=== PATIENT | male | born 1960 | race Two or more races ===

== ENCOUNTER 2025-01-30 07:17 | Outpatient (CLI) | payer OTHER | END 2025-01-30 07:30 | disposition home or self-care (01) | LOC: SONOGRAMA 07:17 | PROVIDERS: ATTEND General Practice | DX: G56.03 Carpal tunnel syndrome, bilateral upper limbs (principal); M19.91 Primary osteoarthritis, unspecified site; Z11.3 Encounter for screening for infections with a predominantly sexual mode of transmission; Z13.0 Encounter for screening for diseases of the blood and blood-forming organs and certain disorders involving the immune mechanism; Z13.1 Encounter for screening for diabetes mellitus; Z13.220 Encounter for screening for lipoid disorders; Z13.89 Encounter for screening for other disorder; Z12.5 Encounter for screening for malignant neoplasm of prostate; N40.1 Benign prostatic hyperplasia with lower urinary tract symptoms; N39.0 Urinary tract infection, site not specified; R10.9 Unspecified abdominal pain; M25.50 Pain in unspecified joint ==

== ENCOUNTER 2025-01-30 09:08 | Outpatient (CLI) | payer OTHER ==
[2025-01-30 10:23] LABS: HEMATOCRIT 47.1 % (39.0-48.0); MEAN CELL VOLUME 85.6 fL (80.0-100.00); MEAN CORPUSCULAR HEMOGLOBIN 29.1 pg (27.00-32.0); MEAN CORPUSCULAR HGB CONC 33.9 g/dl (32.0-36.0); PLATELET COUNT 254 K/uL (150-450); RED CELL DISTRIBUTION WIDTH 13.1 % (11.5-14.5)
[2025-01-30 10:39] LABS: ERYTHROCYTE SEDIMENTATION RATE 4 mm/hr
[2025-01-30 10:48] LABS: PH,URINE 5.5 (5.0-8.0); URINE APPEARANCE Clear; URINE BILIRRUBIN Negative (NEGATIVE); URINE BLOOD Trace; URINE COLOR Yellow; URINE GLUCOSE Negative (NEGATIVE); URINE KETONE Negative (NEGATIVE); URINE LEUKOCYTE Negative; URINE NITRATE Negative; URINE PROTEIN Negative (NEGATIVE); URINE UROBILINOGEN 0.2 E.U./dl
[2025-01-30 10:53] LABS: URINE BACTERIA 4.8 uL (0.0-1933); URINE EPITHELIAL CELLS 1.5 uL (0.0-38.8); URINE RBC 6.3 uL (0.0-20.8); URINE WBC 5.5 uL (0.0-23.2)
[2025-01-30 10:58] LABS: ALBUMIN 3.9 gm/dL (3.4-5.0); BILIRUBIN TOTAL 0.55 mg/dL (0.3-1.2); CALCIUM 9.7 mg/dL (8.5-10.1); CHOL HDL RATIO 4.2 (0-5.0); CREATININE SERUM 0.72 mg/dL (0.70-1.30); GFR 110.26; GLOBULINA 3.2 G/DL (2.4-3.5); POTASSIUM 4.41 mEq/L (3.5-5.1); TOTAL PROTEIN 7.1 gm/dL (6.4-8.2); TSH 1.61 uIU/mL (0.358-3.74)
[2025-01-30 11:02] LABS: URINE CAST 0.14 uL (0.0-1.40)
[2025-01-30 15:17] LABS: RF NEGATIVE (NEGATIVE)
[2025-01-30 15:24] LABS: RAPID PLASMA REAGIN NONREACTIVE BY RPR (NONREACTIVE)
[2025-01-31 09:20] LABS: hav igm Negative (Negative); hcv Non Reactive (Non Reactive); hep b c Negative (Negative); hep b s ag Negative (Negative)
== END 2025-01-30 09:12 | disposition home or self-care (01) ==
LOC: LAB 09:08
PROVIDERS: ATTEND General Practice
DX: Z11.3 Encounter for screening for infections with a predominantly sexual mode of transmission (principal); Z12.11 Encounter for screening for malignant neoplasm of colon; Z13.1 Encounter for screening for diabetes mellitus; Z13.220 Encounter for screening for lipoid disorders; Z13.89 Encounter for screening for other disorder; Z12.5 Encounter for screening for malignant neoplasm of prostate; G56.03 Carpal tunnel syndrome, bilateral upper limbs; M19.91 Primary osteoarthritis, unspecified site; N40.1 Benign prostatic hyperplasia with lower urinary tract symptoms; N39.0 Urinary tract infection, site not specified; M25.50 Pain in unspecified joint

== ENCOUNTER → 2025-02-03 10:45 | Outpatient (CLI) | payer OTHER ==
[2025-02-03 13:46] LABS: ob NEGATIVE (NEGATIVE)
== END | disposition home or self-care (01) ==
LOC: LAB 10:45
PROVIDERS: ATTEND General Practice
DX: Z11.3 Encounter for screening for infections with a predominantly sexual mode of transmission (principal); Z12.11 Encounter for screening for malignant neoplasm of colon; Z13.0 Encounter for screening for diseases of the blood and blood-forming organs and certain disorders involving the immune mechanism; Z13.1 Encounter for screening for diabetes mellitus; Z13.220 Encounter for screening for lipoid disorders; Z13.89 Encounter for screening for other disorder; Z12.5 Encounter for screening for malignant neoplasm of prostate; G56.03 Carpal tunnel syndrome, bilateral upper limbs; M19.91 Primary osteoarthritis, unspecified site; N40.1 Benign prostatic hyperplasia with lower urinary tract symptoms; N39.0 Urinary tract infection, site not specified; M25.50 Pain in unspecified joint

== ENCOUNTER 2025-02-19 11:23 | Outpatient (CLI) | payer OTHER | END 2025-02-19 11:31 | disposition home or self-care (01) | LOC: SONOGRAMA 11:23 | PROVIDERS: ATTEND Physical Medicine & Rehabilitation Pediatric Rehabilitation Medicine | DX: M15.0 Primary generalized (osteo)arthritis (principal) ==